=== PATIENT | male | born 1990 | race Caucasian/White ===

== ENCOUNTER 2016-02-27 17:35 | Emergency (ER) | payer BC ==
[~2016-02-27 17:35] MED LIST: MOTR200T40 PO; NORC5TAB PO; TYLE325T5 PO
[2016-02-27] MEDS ORDERED: LIDOCAINE 2% W/EPIN INJ 20ML **PRES FREE As Ordered ONE (18:13)
[2016-02-27] MEDS ORDERED: ADACEL/BOOSTRIX VACCINE (DIPHTH/PERTUSS/ACELL/TETANUS)0.5ML SYR (90715) As Ordered ONE (19:21)
--- NOTE | 2016-02-27 19:46 | EDDOCDS ---
Physician Documentation [facility] Name: Josh Harp Age: 25 yrs Sex: Male : 1990 Arrival Date: 02/27/2016 Time: 17:35 Bed PD Private MD: NO PRIMARY PHYSICIAN, . Disposition: 02/27/16 19:08 Discharged to Home/Self Care. Impression: Concussion, Laceration without foreign body of other part of head - forehead. - Condition is Stable. - Discharge Instructions: Head Injury, Adult, Sutured Wound Care. - Medication Reconciliation, Work Release Form - 2 day form. - Follow up: Emergency Department; When: As needed; Reason: Worsening of conditions. Follow up: Private Physician; When: Call to arrange an appointment; Reason: Wound/Symptom Recheck, Recheck today's complaints, Continuance of care. - Problem is new. - Symptoms have improved. - Notes: 3 sutures were placed today. Keep area clean and dry. Follow up in 7 days for suture removal. Return sooner for any signs of infection. Historical: - Allergies: no known allergies; - Home Meds: 1. Celexa Oral ran out over 1 month ago - PMHx: Depression; - PSHx: Appendectomy; - Social history: Smoking status: Patient states was never smoker of tobacco. No barriers to communication noted, The patient speaks fluent Croatian, Speaks appropriately for age. - Family history: Not pertinent. - : The pt / caregiver states he / she is not on anticoagulants. Home medication list is obtained from the patient. - Exposure Risk Screening:: None identified. - Tetanus status: unknown. Vital Signs: 02/26 17:37 BP 163 / 83; Pulse 94; Resp 18 S; Temp 97.5(O); Pulse Ox 98% on R/A; Weight 99.79 kg / gr2 220 lbs (R); Height 6 ft. 3 in. (190.50 cm) (R); Pain 4/10; 19:11 BP 133 / 75 LA Sitting (auto/reg); Pulse 70 MON; Resp 18 S; Temp 97.7(O); Pulse Ox 97% cln on R/A; Pain 0/10; 17:37 Body Mass Index 27.50 (99.79 kg, 190.50 cm) gr2 [place] Coma Score: 17:41 Eye Response: spontaneous(4). Verbal Response: oriented(5). Motor Response: obeys kr3 commands(6). Total: 15. Procedures: 19:11 Laceration repair:. cc10 Laceration: 19:11 Wound Repair of 2cm ( 0.8in ) full thickness laceration to forehead. Linear shaped.. cc10 Skin/tissue flap noted.. Distal neuro/vascular/tendon intact. Anesthesia: Local anesthetic administered with 2.5 mls of 1% lidocaine w/ Epi. Wound prep: Simple cleansing with betadine by provider, Wound irrigation with saline by provider. Skin closed with 3 x 4-0 Nylon using Simple interrupted sutures. Dressed with Bacitracin. Patient tolerated well. MDM: 18:08 Lidocaine-Epinephrine 2 %-1:100,000 10 ml Infiltration once; to bedside ordered. cc10 18:08 CT Head Without Contrast Ordered. EDMS 19:07 Tetanus- Diptheria-Acellular Pertussis 0.5 ml IM once; Routine booster 10-64yrs, >64 cc10 with child contact Lucama Omnicell ordered. 19:30 Financial registration complete. [email or web address] 19:38 [facility] Payment Agreement was scanned into [employer] and attached to record. [email or web address] Administered Medications: 19:06 Drug: Lidocaine-Epinephrine 2 %-1:100,000 10 ml Route: Infiltration; Site: affected cc10 area; 19:26 Drug: Tetanus- Diptheria-Acellular Pertussis 0.5 ml [diphth,pertussis(acel),tetanus 2.5 kmg1 Lf unit-8 mcg-5 Lf/0.5mL IM syringe (0.5 mL)] {Locker Room Attendant: [employer]. Exp: 04/06/2018. Lot #: [id number]. } Route: IM; Site: left deltoid; Signatures: Dispatcher [employer] EDMS Natasha Scanlon RN RN kmg1 Treva Smith RN RN kr3 Mickie Menchaca RN RN js13 Rubin Agrawal PA-C PA-C cc10 Monse Hatch, Reg Reg ks16 The chart was reviewed and I authenticate all verbal orders and agree with the evaluation and treatment provided.Attachments: 19:38 [facility] Payment Agreement [email or web address] MTDD
--- NOTE | 2016-02-27 19:46 | EDDOCDS ---
Nurse's Notes [facility] Name: Josh Harp Age: 25 yrs Sex: Male : 1990 Arrival Date: 02/27/2016 Time: 17:35 Bed PD Private MD: NO PRIMARY PHYSICIAN, . Diagnosis: Concussion;Laceration without foreign body of other part of head-forehead Presentation: 02/26 17:41 Presenting complaint: states: found by family member sitting on porch with no kr3 recall of injury but had laceration to forehead. Presenting complaint: Patient states: no recall of how he received laceration to forehead. unknown. Mechanism of Injury: resulted from unknown. Adult Sepsis Screening: The patient does not have new or worsening altered mentation. Patient's respiratory rate is less than 22. Systolic blood pressure is greater than 100. Patient has a qSOFA score of 0- Negative Sepsis Screen. Suicide/Homicide risk assessment- the patient denies having any suicidal and/or homicidal ideations and does not present with any other emotional, behavioral or mental health complaints. Status: Patient is not a veterans service officer or dependent. Transition of care: patient was not received from another setting of care. 17:41 Acuity: ISSA Level 3 kr3 17:41 Method Of Arrival: Walkin/Carried/Asstd kr3 Triage Assessment: 17:43 General: Appears in no apparent distress, comfortable, Behavior is cooperative. Pain: kr3 Location: forehead Pain currently is 7 out of 10 on a pain scale. Quality of pain is described as pounding. Pt Declines HIV testing. Neurological: Level of Consciousness is awake, alert, Reports headache. Respiratory: Respiratory effort is even, unlabored. Injury Description: Laceration sustained to middle aspect of left eyebrow is clean, was sustained 30-60 minutes ago. is bleeding no active bleeding noted. Historical: - Allergies: no known allergies; - Home Meds: 1. Celexa Oral ran out over 1 month ago - PMHx: Depression; - PSHx: Appendectomy; - Social history: Smoking status: Patient states was never smoker of tobacco. No barriers to communication noted, The patient speaks fluent Korean, Speaks appropriately for age. - Family history: Not pertinent. - : The pt / caregiver states he / she is not on anticoagulants. Home medication list is obtained from the patient. - Exposure Risk Screening:: None identified. - Tetanus status: unknown. Screenin:00 Screening information is obtained from the patient. Fall risk: No risks identified. js13 Assistance ADL's: requires no assistance with activities of daily living. Abuse/DV Screen: The patient / caregiver reports he/she is: not in a situation that causes fear, pain or injury. Nutritional screening: No deficits noted. Advance Directives: There is no active DNR order. home support is adequate. Assessment: 19:00 General: Appears in no apparent distress, Behavior is appropriate for age, cooperative. js13 Neurological: Level of Consciousness is awake, alert. Respiratory: Airway is patent Respiratory effort is even, unlabored, Respiratory pattern is regular, symmetrical. Derm: Skin is pink, warm & dry. 19:38 General: Appears in no apparent distress, comfortable, Behavior is appropriate for age, kmg1 cooperative. Pain: Location: forehead Pain currently is 1 out of 10 on a pain scale. Quality of pain is described as sore. Injury Description: Laceration sustained to forehead is sutures intact. No bleeding noted. Vital Signs: 17:37 BP 163 / 83; Pulse 94; Resp 18 S; Temp 97.5(O); Pulse Ox 98% on R/A; Weight 99.79 kg gr2 (R); Height 6 ft. 3 in. (190.50 cm) (R); Pain 4/10; 19:11 BP 133 / 75 LA Sitting (auto/reg); Pulse 70 MON; Resp 18 S; Temp 97.7(O); Pulse Ox 97% cln on R/A; Pain 0/10; 17:37 Body Mass Index 27.50 (99.79 kg, 190.50 cm) gr2 Vitals: 17:37 Log In Time: February 27, 2016 at 17:37. gr2 [place] Coma Score: 17:41 Eye Response: spontaneous(4). Verbal Response: oriented(5). Motor Response: obeys kr3 commands(6). Total: 15. ED Course: 17:36 Patient visited by Radha Arana. gr2 17:36 Patient moved to Waiting gr2 17:37 [facility] is Private Physician. gr2 17:37 NO PRIMARY PHYSICIAN, . is Private Physician. gr2 17:38 Patient visited by Radha Arana. gr2 17:39 Patient moved to Pre RCE gr2 17:43 Triage Initiated kr3 17:52 Patient moved to Triage 3 js13 18:00 Chetan Lind PA is PHCP. btw 18:00 Stef Kidd MD is Attending Physician. btw 18:01 Rubin Agrawal PA-C is PHCP. cc10 18:01 Patient visited by Rubin Agrawal PA-C. cc10 18:01 Patient visited by Rubin Agrawal PA-C. cc10 18:11 Patient moved to PD2 / 27 ml6 19:00 The patient / caregiver is instructed regarding the plan of care and ED course. js13 19:00 No IV's were initiated during this patient's visit. No procedures done that require js13 assistance. 19:01 Patient visited by Mickie Menchaca RN. js13 19:14 Patient visited by Fernanda Paulino PCA. cln 19:38 [facility] Payment Agreement was scanned into [employer] and attached to record. [email or web address] Administered Medications: 19:06 Drug: Lidocaine-Epinephrine 2 %-1:100,000 10 ml Route: Infiltration; Site: affected cc10 area; 19:26 Drug: Tetanus- Diptheria-Acellular Pertussis 0.5 ml [diphth,pertussis(acel),tetanus 2.5 kmg1 Lf unit-8 mcg-5 Lf/0.5mL IM syringe (0.5 mL)] {Auditor Supervisor: [employer]. Exp: 04/06/2018. Lot #: [id number]. } Route: IM; Site: left deltoid; Order Results: There are currently no results for this order. Outcome: 19:08 Discharge ordered by Provider. cc10 19:38 Discharge Assessment: Patient awake, alert and oriented x 3. No cognitive and/or kmg1 functional deficits noted. Patient verbalized understanding of disposition instructions. Patient awake and alert. patient administered narcotics - no. The following High Risk Discharge criteria are identified: None. Discharged to home ambulatory, with family. Condition: stable. Discharge instructions given to patient, Instructed on discharge instructions, follow up and referral plans. Demonstrated understanding of instructions, Pt was receptive of discharge instructions/ teaching. CT Study completed. Property sent home with patient. 19:46 Patient left the ED. kmg1 Signatures: Natasha Scanlon, RN RN kmg1 Treva Smith,RN RN crispin3 Bassem Renee, RN RN ml6 Chetan Lind PA PA btw Sullivan, Jennifer,RN RN js13 Radha Arana gr2 Rubin Agrawal, PA-C PA-C cc10 Monse Hatch, Reg Reg ks16 Fernanda Paulino, RICA [employer] cln Corrections: (The following items were deleted from the chart) 19:46 19:38 Discharge Assessment: Patient awake, alert and oriented x 3. No cognitive and/or kmg1 functional deficits noted. Patient verbalized understanding of disposition instructions. Patient awake and alert. patient administered narcotics - kmg1 MTDD
--- NOTE | 2016-02-29 20:46 | EDDOCDS ---
Physician Documentation [facility] Name: Josh Harp Age: 25 yrs Sex: Male : 1990 Arrival Date: 02/27/2016 Time: 17:35 Bed PD Private MD: NO PRIMARY PHYSICIAN, . Disposition: 02/27/16 19:08 Discharged to Home/Self Care. Impression: Concussion, Laceration without foreign body of other part of head - forehead. - Condition is Stable. - Discharge Instructions: Head Injury, Adult, Sutured Wound Care. - Medication Reconciliation, Work Release Form - 2 day form. - Follow up: Emergency Department; When: As needed; Reason: Worsening of conditions. Follow up: Private Physician; When: Call to arrange an appointment; Reason: Wound/Symptom Recheck, Recheck today's complaints, Continuance of care. - Problem is new. - Symptoms have improved. - Notes: 3 sutures were placed today. Keep area clean and dry. Follow up in 7 days for suture removal. Return sooner for any signs of infection. Historical: - Allergies: no known allergies; - Home Meds: 1. Celexa Oral ran out over 1 month ago - PMHx: Depression; - PSHx: Appendectomy; - Social history: Smoking status: Patient states was never smoker of tobacco. No barriers to communication noted, The patient speaks fluent Haitian, Speaks appropriately for age. - Family history: Not pertinent. - : The pt / caregiver states he / she is not on anticoagulants. Home medication list is obtained from the patient. - Exposure Risk Screening:: None identified. - Tetanus status: unknown. Vital Signs: 02/26 17:37 BP 163 / 83; Pulse 94; Resp 18 S; Temp 97.5(O); Pulse Ox 98% on R/A; Weight 99.79 kg / gr2 220 lbs (R); Height 6 ft. 3 in. (190.50 cm) (R); Pain 4/10; 19:11 BP 133 / 75 LA Sitting (auto/reg); Pulse 70 MON; Resp 18 S; Temp 97.7(O); Pulse Ox 97% cln on R/A; Pain 0/10; 17:37 Body Mass Index 27.50 (99.79 kg, 190.50 cm) gr2 [place] Coma Score: 17:41 Eye Response: spontaneous(4). Verbal Response: oriented(5). Motor Response: obeys kr3 commands(6). Total: 15. Procedures: 19:11 Laceration repair:. cc10 Laceration: 19:11 Wound Repair of 2cm ( 0.8in ) full thickness laceration to forehead. Linear shaped.. cc10 Skin/tissue flap noted.. Distal neuro/vascular/tendon intact. Anesthesia: Local anesthetic administered with 2.5 mls of 1% lidocaine w/ Epi. Wound prep: Simple cleansing with betadine by provider, Wound irrigation with saline by provider. Skin closed with 3 x 4-0 Nylon using Simple interrupted sutures. Dressed with Bacitracin. Patient tolerated well. MDM: 18:08 Lidocaine-Epinephrine 2 %-1:100,000 10 ml Infiltration once; to bedside ordered. cc10 18:08 CT Head Without Contrast Ordered. EDMS 19:07 Tetanus- Diptheria-Acellular Pertussis 0.5 ml IM once; Routine booster 10-64yrs, >64 cc10 with child contact Tonalea Omnicell ordered. 19:30 Financial registration complete. [facility] 19:38 [facility] Payment Agreement was scanned into [employer] and attached to record. [facility] 20:56 T-Sheet-- Draft Copy was scanned into [employer] and attached to record. klr Administered Medications: 19:06 Drug: Lidocaine-Epinephrine 2 %-1:100,000 10 ml Route: Infiltration; Site: affected cc10 area; 19:26 Drug: Tetanus- Diptheria-Acellular Pertussis 0.5 ml [diphth,pertussis(acel),tetanus 2.5 kmg1 Lf unit-8 mcg-5 Lf/0.5mL IM syringe (0.5 mL)] {Sandwich Maker: [employer]. Exp: 04/06/2018. Lot #: [id number]. } Route: IM; Site: left deltoid; Signatures: Dispatcher [employer]Host EDMS Natasha Scanlon RN RN kmg1 Treva Smith RN RN kr3 Mickie Menchaca RN RN js13 Rubin Agrawal PA-C PA-C cc10 Monse Hatch, Reg Reg ks16 [place], [place] klr The chart was reviewed and I authenticate all verbal orders and agree with the evaluation and treatment provided.Attachments: 19:38 [facility] Payment Agreement [email or web address] 20:56 T-Sheet-- Draft Copy billy Chart Complete MTDD
--- NOTE | 2016-02-29 20:46 | EDDOCDS ---
Physician Documentation [facility] Name: Josh Harp Age: 25 yrs Sex: Male : 1990 Arrival Date: 02/27/2016 Time: 17:35 Bed PD Private MD: NO PRIMARY PHYSICIAN, . Disposition: 02/27/16 19:08 Discharged to Home/Self Care. Impression: Concussion, Laceration without foreign body of other part of head - forehead. - Condition is Stable. - Discharge Instructions: Head Injury, Adult, Sutured Wound Care. - Medication Reconciliation, Work Release Form - 2 day form. - Follow up: Emergency Department; When: As needed; Reason: Worsening of conditions. Follow up: Private Physician; When: Call to arrange an appointment; Reason: Wound/Symptom Recheck, Recheck today's complaints, Continuance of care. - Problem is new. - Symptoms have improved. - Notes: 3 sutures were placed today. Keep area clean and dry. Follow up in 7 days for suture removal. Return sooner for any signs of infection. Historical: - Allergies: no known allergies; - Home Meds: 1. Celexa Oral ran out over 1 month ago - PMHx: Depression; - PSHx: Appendectomy; - Social history: Smoking status: Patient states was never smoker of tobacco. No barriers to communication noted, The patient speaks fluent Malian, Speaks appropriately for age. - Family history: Not pertinent. - : The pt / caregiver states he / she is not on anticoagulants. Home medication list is obtained from the patient. - Exposure Risk Screening:: None identified. - Tetanus status: unknown. Vital Signs: 02/26 17:37 BP 163 / 83; Pulse 94; Resp 18 S; Temp 97.5(O); Pulse Ox 98% on R/A; Weight 99.79 kg / gr2 220 lbs (R); Height 6 ft. 3 in. (190.50 cm) (R); Pain 4/10; 19:11 BP 133 / 75 LA Sitting (auto/reg); Pulse 70 MON; Resp 18 S; Temp 97.7(O); Pulse Ox 97% cln on R/A; Pain 0/10; 17:37 Body Mass Index 27.50 (99.79 kg, 190.50 cm) gr2 [place] Coma Score: 17:41 Eye Response: spontaneous(4). Verbal Response: oriented(5). Motor Response: obeys kr3 commands(6). Total: 15. Procedures: 19:11 Laceration repair:. cc10 Laceration: 19:11 Wound Repair of 2cm ( 0.8in ) full thickness laceration to forehead. Linear shaped.. cc10 Skin/tissue flap noted.. Distal neuro/vascular/tendon intact. Anesthesia: Local anesthetic administered with 2.5 mls of 1% lidocaine w/ Epi. Wound prep: Simple cleansing with betadine by provider, Wound irrigation with saline by provider. Skin closed with 3 x 4-0 Nylon using Simple interrupted sutures. Dressed with Bacitracin. Patient tolerated well. MDM: 18:08 Lidocaine-Epinephrine 2 %-1:100,000 10 ml Infiltration once; to bedside ordered. cc10 18:08 CT Head Without Contrast Ordered. EDMS 19:07 Tetanus- Diptheria-Acellular Pertussis 0.5 ml IM once; Routine booster 10-64yrs, >64 cc10 with child contact Wesson Omnicell ordered. 19:30 Financial registration complete. [facility] 19:38 [facility] Payment Agreement was scanned into [employer] and attached to record. [facility] 20:56 T-Sheet-- Draft Copy was scanned into [employer] and attached to record. klr Administered Medications: 19:06 Drug: Lidocaine-Epinephrine 2 %-1:100,000 10 ml Route: Infiltration; Site: affected cc10 area; 19:26 Drug: Tetanus- Diptheria-Acellular Pertussis 0.5 ml [diphth,pertussis(acel),tetanus 2.5 kmg1 Lf unit-8 mcg-5 Lf/0.5mL IM syringe (0.5 mL)] {Debit Agent: [employer] Exp: 04/06/2018. Lot #: [id number]. } Route: IM; Site: left deltoid; Signatures: Dispatcher [employer] EDMS Natasha Scanlon RN RN kmg1 Treva Smith RN RN kr3 Mickie Menchaca RN RN js13 Rubin Agrawal PA-C PA-C cc10 Monse Hatch, Reg Reg ks16 [place], [place] klr The chart was reviewed and I authenticate all verbal orders and agree with the evaluation and treatment provided.Attachments: 19:38 [facility] Payment Agreement [email or web address] 20:56 T-Sheet-- Draft Copy billy Chart Complete MTDD
--- NOTE | 2016-02-29 20:46 | EDDOCDS ---
Nurse's Notes [facility] Name: Josh Harp Age: 25 yrs Sex: Male : 1990 Arrival Date: 02/27/2016 Time: 17:35 Bed PD Private MD: NO PRIMARY PHYSICIAN, . Diagnosis: Concussion;Laceration without foreign body of other part of head-forehead Presentation: 02/26 17:41 Presenting complaint: states: found by family member sitting on porch with no kr3 recall of injury but had laceration to forehead. Presenting complaint: Patient states: no recall of how he received laceration to forehead. unknown. Mechanism of Injury: resulted from unknown. Adult Sepsis Screening: The patient does not have new or worsening altered mentation. Patient's respiratory rate is less than 22. Systolic blood pressure is greater than 100. Patient has a qSOFA score of 0- Negative Sepsis Screen. Suicide/Homicide risk assessment- the patient denies having any suicidal and/or homicidal ideations and does not present with any other emotional, behavioral or mental health complaints. Status: Patient is not a nursing services manager or dependent. Transition of care: patient was not received from another setting of care. 17:41 Acuity: ISSA Level 3 kr3 17:41 Method Of Arrival: Walkin/Carried/Asstd kr3 Triage Assessment: 17:43 General: Appears in no apparent distress, comfortable, Behavior is cooperative. Pain: kr3 Location: forehead Pain currently is 7 out of 10 on a pain scale. Quality of pain is described as pounding. Pt Declines HIV testing. Neurological: Level of Consciousness is awake, alert, Reports headache. Respiratory: Respiratory effort is even, unlabored. Injury Description: Laceration sustained to middle aspect of left eyebrow is clean, was sustained 30-60 minutes ago. is bleeding no active bleeding noted. Historical: - Allergies: no known allergies; - Home Meds: 1. Celexa Oral ran out over 1 month ago - PMHx: Depression; - PSHx: Appendectomy; - Social history: Smoking status: Patient states was never smoker of tobacco. No barriers to communication noted, The patient speaks fluent Khmer, Speaks appropriately for age. - Family history: Not pertinent. - : The pt / caregiver states he / she is not on anticoagulants. Home medication list is obtained from the patient. - Exposure Risk Screening:: None identified. - Tetanus status: unknown. Screenin:00 Screening information is obtained from the patient. Fall risk: No risks identified. js13 Assistance ADL's: requires no assistance with activities of daily living. Abuse/DV Screen: The patient / caregiver reports he/she is: not in a situation that causes fear, pain or injury. Nutritional screening: No deficits noted. Advance Directives: There is no active DNR order. home support is adequate. Assessment: 19:00 General: Appears in no apparent distress, Behavior is appropriate for age, cooperative. js13 Neurological: Level of Consciousness is awake, alert. Respiratory: Airway is patent Respiratory effort is even, unlabored, Respiratory pattern is regular, symmetrical. Derm: Skin is pink, warm & dry. 19:38 General: Appears in no apparent distress, comfortable, Behavior is appropriate for age, kmg1 cooperative. Pain: Location: forehead Pain currently is 1 out of 10 on a pain scale. Quality of pain is described as sore. Injury Description: Laceration sustained to forehead is sutures intact. No bleeding noted. Vital Signs: 17:37 BP 163 / 83; Pulse 94; Resp 18 S; Temp 97.5(O); Pulse Ox 98% on R/A; Weight 99.79 kg gr2 (R); Height 6 ft. 3 in. (190.50 cm) (R); Pain 4/10; 19:11 BP 133 / 75 LA Sitting (auto/reg); Pulse 70 MON; Resp 18 S; Temp 97.7(O); Pulse Ox 97% cln on R/A; Pain 0/10; 17:37 Body Mass Index 27.50 (99.79 kg, 190.50 cm) gr2 Vitals: 17:37 Log In Time: February 27, 2016 at 17:37. gr2 Davis Coma Score: 17:41 Eye Response: spontaneous(4). Verbal Response: oriented(5). Motor Response: obeys kr3 commands(6). Total: 15. ED Course: 17:36 Patient visited by Radha Arana. gr2 17:36 Patient moved to Waiting gr2 17:37 [facility] is Private Physician. gr2 17:37 NO PRIMARY PHYSICIAN, . is Private Physician. gr2 17:38 Patient visited by Radha Arana. gr2 17:39 Patient moved to Pre RCE gr2 17:43 Triage Initiated kr3 17:52 Patient moved to Triage 3 js13 18:00 Chetan Lind PA is PHCP. btw 18:00 Stef Kidd MD is Attending Physician. btw 18:01 Rubin Agrawal PA-C is PHCP. cc10 18:01 Patient visited by Rubin Agrawal PA-C. cc10 18:01 Patient visited by Rubin Agrawal PA-C. cc10 18:11 Patient moved to PD2 / 27 ml6 19:00 The patient / caregiver is instructed regarding the plan of care and ED course. js13 19:00 No IV's were initiated during this patient's visit. No procedures done that require js13 assistance. 19:01 Patient visited by Mickie Menchaca RN. js13 19:14 Patient visited by Fernanda Paulino PCA. cln 19:38 [facility] Payment Agreement was scanned into [employer] and attached to record. ks16 19:50 CT Head Without Contrast Returned. EDMS 20:56 T-Sheet-- Draft Copy was scanned into [employer] and attached to record. klr Administered Medications: 19:06 Drug: Lidocaine-Epinephrine 2 %-1:100,000 10 ml Route: Infiltration; Site: affected cc10 area; 19:26 Drug: Tetanus- Diptheria-Acellular Pertussis 0.5 ml [diphth,pertussis(acel),tetanus 2.5 kmg1 Lf unit-8 mcg-5 Lf/0.5mL IM syringe (0.5 mL)] {Student Services Coordinator: [employer]. Exp: 04/06/2018. Lot #: [id number]. } Route: IM; Site: left deltoid; Order Results: Radiology Order: CT Head Without Contrast Test: CT Head Without Contrast REASON FOR EXAMINATION: Trauma; ; CLINICAL HISTORY: Head trauma.; TECHNIQUE: Multiple axial brain CT scan sections were obtained from base to vertex without contrast a; dministration.; COMMENTS:; There is no evidence of skull fracture.; The study shows normal configuration of sella turcica. There are no intra or extra-axial collections.; There is no mass effect or midline shift. There is no evidence of hematoma formation. No hydrocephal; us is present. No abnormal calcifications are noted.; No significant abnormalities are seen either in the posterior fossa or supratentorial compartment.; The sinuses and mastoid air cells are patent.; IMPRESSION:; No evidence of acute intracranial pathology. No intracranial hemorrhage or skull fracture.; Thank you for your kind referral of this patient.; ; Outcome: 19:08 Discharge ordered by Provider. cc10 19:38 Discharge Assessment: Patient awake, alert and oriented x 3. No cognitive and/or kmg1 functional deficits noted. Patient verbalized understanding of disposition instructions. Patient awake and alert. patient administered narcotics - no. The following High Risk Discharge criteria are identified: None. Discharged to home ambulatory, with family. Condition: stable. Discharge instructions given to patient, Instructed on discharge instructions, follow up and referral plans. Demonstrated understanding of instructions, Pt was receptive of discharge instructions/ teaching. CT Study completed. Property sent home with patient. 19:46 Patient left the ED. kmg1 Signatures: Dispatcher [employer] EDMS Natasha Scanlon RN RN kmg1 Treva Smith,RN RN crispin3 Bassem Renee, RN RN ml6 Chetan Lind PA PA btw Sullivan, Jennifer,RN RN js13 Radha Arana gr2 Rubin Agrawal PA-C PA-C cc10 Monse Hatch, Reg Reg ks16 Fernanda Paulino, ZINC PLATING MACHINE OPERATOR ZINC PLATING MACHINE OPERATOR clEnid Cates Corrections: (The following items were deleted from the chart) 19:46 19:38 Discharge Assessment: Patient awake, alert and oriented x 3. No cognitive and/or kmg1 functional deficits noted. Patient verbalized understanding of disposition instructions. Patient awake and alert. patient administered narcotics - kmg1 Chart Complete MTDD
== END 2016-02-27 19:46 | disposition home or self-care (01) ==
LOC: M ED 17:35
DX: S01.01XA Laceration without foreign body of scalp, initial encounter (principal); S06.0X0A Concussion without loss of consciousness, initial encounter; W22.8XXA Striking against or struck by other objects, initial encounter; Y92.019 Unspecified place in single-family (private) house as the place of occurrence of the external cause; Y93.89 Activity, other specified; Y99.8 Other external cause status; F32.9 Major depressive disorder, single episode, unspecified; Z79.899 Other long term (current) drug therapy

== ENCOUNTER 2016-03-01 09:19 | Emergency (ER) | payer BC ==
--- NOTE | 2016-03-01 10:19 | EDDOCDS ---
Nurse's Notes [facility] Name: Josh Harp Age: 25 yrs Sex: Male : 1990 Arrival Date: 03/01/2016 Time: : Bed I6 / 28 Private MD: Kenyetta Cage Diagnosis: Concussion-with short term memory impairment Presentation: 03/01 09:26 Presenting complaint: states: Fall with LOC on Sunday seen here, reports mlb1 memory loss since Sunday. Adult Sepsis Screening: Patient has new or worsening altered mentation (1 point). Patient's respiratory rate is less than 22. Systolic blood pressure is greater than 100. Patient has a qSOFA score of 0- Negative Sepsis Screen. Suicide/Homicide risk assessment- the patient denies having any suicidal and/or homicidal ideations and does not present with any other emotional, behavioral or mental health complaints. Status: Patient is not a information services consultant or dependent. Transition of care: patient was not received from another setting of care. 09:26 Acuity: ISSA Level 3 mlb1 09:26 Method Of Arrival: Walkin/Carried/Asstd mlb1 Triage Assessment: 09:28 General: Appears in no apparent distress, Behavior is cooperative, quiet. Pain: mlb1 Location: head Pain currently is 7 out of 10 on a pain scale. HIV screening NA for this visit Offered previously. Neurological: Level of Consciousness is awake, Oriented to person, place, time. Historical: - Allergies: no known allergies; - Home Meds: 1. Celexa 20 mg oral tab once daily ran out over 1 month ago - PMHx: Depression; - PSHx: Appendectomy; - Social history: Smoking status: Patient states was never smoker of tobacco. No barriers to communication noted, The patient speaks fluent Bengali, Speaks appropriately for age. - Family history: Not pertinent. - : The pt / caregiver states he / she is not on anticoagulants. Home medication list is obtained from family members. - Exposure Risk Screening:: None identified. Screenin:51 Screening information is obtained from the patient. Fall risk: At risk due to apparent ck1 cognitive impairment, The following interventions are performed due to a positive Fall Risk Screen: Fall Risk is added to Special Handling on the patient Summary Screen. A Fall Risk Bracelet was applied to the patient. Side Rails are placed in the up position. A Call Perez is given with instruction to call for help when getting out of bed. Fall Alert bracelet is placed on the patient. Assistance ADL's: requires no assistance with activities of daily living. Abuse/DV Screen: The patient / caregiver reports he/she is: not in a situation that causes fear, pain or injury. Nutritional screening: No deficits noted. Advance Directives: Currently, there is no health care proxy. home support is adequate. Assessment: 09:52 General: Appears in no apparent distress, Behavior is flat. Pain: Location: head Pain ck1 currently is 6 out of 10 on a pain scale. Neurological: Level of Consciousness is awake, alert, obeys commands, Oriented to person, place, time. Respiratory: No deficits noted. GI: Reports nausea. Derm: Skin is pink, warm & dry. sutures in place to forehead. Site clear , no redness or swelling noted. Musculoskeletal: Circulation, motion, and sensation intact Range of motion intact in all extremities. 10:18 Reassessment: Patient appears in no apparent distress at this time. pain OWENS 6/10. AO ck1 x's 3. Vital Signs: 09:21 BP 149 / 79; Pulse 78; Resp 16; Temp 98.3; Pulse Ox 100% ; Weight 90.72 kg; Height 6 cmb ft. 1 in. (185.42 cm); Pain 7/10; 09:21 Body Mass Index 26.39 (90.72 kg, 185.42 cm) cmb Vitals: 09:21 Log In Time: March 01, 2016 at 09:15. cmb ED Course: 09:21 Patient visited by Jossie Webber. cmb 09:21 Kenyetta Cage PA-C is Private Physician. cmb 09:21 Patient moved to Waiting cmb 09:25 Patient visited by Korey Mtz RN. mlb1 09:27 Triage Initiated mlb1 09:28 RN notified that patient meets Red Flag criteria. cmb 09:29 Patient visited by Korey Mtz RN. mlb1 09:29 [facility] ar2 09:29 Stef Kidd MD is Attending Physician. ar2 09:29 Patient visited by Robertshaw, Bora, PA-C. ar2 09:29 Patient moved to Triage 3 mlb1 09:30 Patient moved to Triage 2 mlb1 09:45 Patient moved to I6 / 28 dy 09:52 The patient / caregiver is instructed regarding the plan of care and ED course. ck1 10:07 Crispin Justice MD is Referral Physician. ar2 10:13 [facility] Payment Agreement was scanned into [employer] and attached to record. pm4 10:17 No IV's were initiated during this patient's visit. No procedures done that require ck1 assistance. Order Results: There are currently no results for this order. Outcome: 10:08 Discharge ordered by Provider. ar2 10:17 Discharge Assessment: Patient awake, alert and oriented x 3. No cognitive and/or ck1 functional deficits noted. Patient verbalized understanding of disposition instructions. patient administered narcotics - no. The following High Risk Discharge criteria are identified: None. Discharged to home ambulatory, with significant other. Condition: stable. Discharge instructions given to patient, significant other, Instructed on discharge instructions, follow up and referral plans. medication usage, Demonstrated understanding of instructions, medications, Pt was receptive of discharge instructions/ teaching. No special radiology studies were completed. Property :Personal belongings accompany Pt. 10:18 Patient left the ED. ck1 Signatures: Keith Machado RN Korey Haywood RN RN mlb1 Hilary Romo RN RN ck1 Bora Barfield PA-C PA-C ar2 Jossie Webber Paul, Reg Reg pm4 MTDD
--- NOTE | 2016-03-01 10:19 | EDDOCDS ---
Physician Documentation [facility] Name: Josh Harp Age: 25 yrs Sex: Male : 1990 Arrival Date: 03/01/2016 Time: 09:19 Bed I6 / Private MD: Kenyetta Cage Disposition: 03/01/16 10:08 Discharged to Home/Self Care. Impression: Concussion - with short term memory impairment. - Condition is Stable. - Discharge Instructions: Concussion, Adult. - Medication Reconciliation, Local Pharmacy Hours form. - Follow up: Crispin Justice MD; When: Call to arrange an appointment; Reason: Recheck today's complaints, Continuance of care. - Problem is new. - Symptoms are unchanged. Historical: - Allergies: no known allergies; - Home Meds: 1. Celexa 20 mg oral tab once daily ran out over 1 month ago - PMHx: Depression; - PSHx: Appendectomy; - Social history: Smoking status: Patient states was never smoker of tobacco. No barriers to communication noted, The patient speaks fluent South Korean, Speaks appropriately for age. - Family history: Not pertinent. - : The pt / caregiver states he / she is not on anticoagulants. Home medication list is obtained from family members. - Exposure Risk Screening:: None identified. Vital Signs: 03/01 09:21 BP 149 / 79; Pulse 78; Resp 16; Temp 98.3; Pulse Ox 100% ; Weight 90.72 kg / 200 lbs; cmb Height 6 ft. 1 in. (185.42 cm); Pain 7/10; 09:21 Body Mass Index 26.39 (90.72 kg, 185.42 cm) cmb MDM: 10:05 Financial registration complete. pm4 10:13 [facility] Payment Agreement was scanned into [employer] and attached to record. pm4 Signatures: Korey Mtz RN RN mlb1 Hilary Romo RN RN ck1 Bora Barfield PA-C PA-C ar2 Paolo Anderson, Reg Reg pm4 The chart was reviewed and I authenticate all verbal orders and agree with the evaluation and treatment provided.Attachments: 10:13 [facility] Payment Agreement pm4 MTDD
--- NOTE | 2016-03-03 11:19 | EDDOCDS ---
Physician Documentation [facility] Name: Josh Harp Age: 25 yrs Sex: Male : 1990 Arrival Date: 03/01/2016 Time: 09:19 Bed I6 / Private MD: Kenyetta Cage Disposition: 03/01/16 10:08 Discharged to Home/Self Care. Impression: Concussion - with short term memory impairment. - Condition is Stable. - Discharge Instructions: Concussion, Adult. - Medication Reconciliation, Local Pharmacy Hours form. - Follow up: Crispin Justice MD; When: Call to arrange an appointment; Reason: Recheck today's complaints, Continuance of care. - Problem is new. - Symptoms are unchanged. Historical: - Allergies: no known allergies; - Home Meds: 1. Celexa 20 mg oral tab once daily ran out over 1 month ago - PMHx: Depression; - PSHx: Appendectomy; - Social history: Smoking status: Patient states was never smoker of tobacco. No barriers to communication noted, The patient speaks fluent Trinidadian, Speaks appropriately for age. - Family history: Not pertinent. - : The pt / caregiver states he / she is not on anticoagulants. Home medication list is obtained from family members. - Exposure Risk Screening:: None identified. Vital Signs: 03/01 09:21 BP 149 / 79; Pulse 78; Resp 16; Temp 98.3; Pulse Ox 100% ; Weight 90.72 kg / 200 lbs; cmb Height 6 ft. 1 in. (185.42 cm); Pain 7/10; 09:21 Body Mass Index 26.39 (90.72 kg, 185.42 cm) cmb MDM: 10:05 Financial registration complete. pm4 10:13 [facility] Payment Agreement was scanned into [employer] and attached to record. pm4 13:45 T-Sheet-- Draft Copy was scanned into [employer] and attached to record. gb Signatures: Claudia Perez, Reg Reg gb Korey Mtz, RN RN mlb1 Hilary Romo RN RN ck1 Bora Barfield, PAYamilka PAYamilka ar2 Paolo Anderson, Reg Reg pm4 The chart was reviewed and I authenticate all verbal orders and agree with the evaluation and treatment provided.Attachments: 10: [facility] Payment Agreement pm4 13:45 T-Sheet-- Draft Copy gb Chart Complete MTDD
--- NOTE | 2016-03-03 11:19 | EDDOCDS ---
Nurse's Notes [facility] Name: Josh Harp Age: 25 yrs Sex: Male : 1990 Arrival Date: 03/01/2016 Time: : Bed I6 / 28 Private MD: Kenyetta Cage Diagnosis: Concussion-with short term memory impairment Presentation: 03/01 09:26 Presenting complaint: states: Fall with LOC on Sunday seen here, reports mlb1 memory loss since Sunday. Adult Sepsis Screening: Patient has new or worsening altered mentation (1 point). Patient's respiratory rate is less than 22. Systolic blood pressure is greater than 100. Patient has a qSOFA score of 0- Negative Sepsis Screen. Suicide/Homicide risk assessment- the patient denies having any suicidal and/or homicidal ideations and does not present with any other emotional, behavioral or mental health complaints. Status: Patient is not a director of tax services or dependent. Transition of care: patient was not received from another setting of care. 09:26 Acuity: ISSA Level 3 mlb1 09:26 Method Of Arrival: Walkin/Carried/Asstd mlb1 Triage Assessment: 09:28 General: Appears in no apparent distress, Behavior is cooperative, quiet. Pain: mlb1 Location: head Pain currently is 7 out of 10 on a pain scale. HIV screening NA for this visit Offered previously. Neurological: Level of Consciousness is awake, Oriented to person, place, time. Historical: - Allergies: no known allergies; - Home Meds: 1. Celexa 20 mg oral tab once daily ran out over 1 month ago - PMHx: Depression; - PSHx: Appendectomy; - Social history: Smoking status: Patient states was never smoker of tobacco. No barriers to communication noted, The patient speaks fluent Hebrew, Speaks appropriately for age. - Family history: Not pertinent. - : The pt / caregiver states he / she is not on anticoagulants. Home medication list is obtained from family members. - Exposure Risk Screening:: None identified. Screenin:51 Screening information is obtained from the patient. Fall risk: At risk due to apparent ck1 cognitive impairment, The following interventions are performed due to a positive Fall Risk Screen: Fall Risk is added to Special Handling on the patient Summary Screen. A Fall Risk Bracelet was applied to the patient. Side Rails are placed in the up position. A Call Perez is given with instruction to call for help when getting out of bed. Fall Alert bracelet is placed on the patient. Assistance ADL's: requires no assistance with activities of daily living. Abuse/DV Screen: The patient / caregiver reports he/she is: not in a situation that causes fear, pain or injury. Nutritional screening: No deficits noted. Advance Directives: Currently, there is no health care proxy. home support is adequate. Assessment: 09:52 General: Appears in no apparent distress, Behavior is flat. Pain: Location: head Pain ck1 currently is 6 out of 10 on a pain scale. Neurological: Level of Consciousness is awake, alert, obeys commands, Oriented to person, place, time. Respiratory: No deficits noted. GI: Reports nausea. Derm: Skin is pink, warm & dry. sutures in place to forehead. Site clear , no redness or swelling noted. Musculoskeletal: Circulation, motion, and sensation intact Range of motion intact in all extremities. 10:18 Reassessment: Patient appears in no apparent distress at this time. pain OWENS 6/10. AO ck1 x's 3. Vital Signs: 09:21 BP 149 / 79; Pulse 78; Resp 16; Temp 98.3; Pulse Ox 100% ; Weight 90.72 kg; Height 6 cmb ft. 1 in. (185.42 cm); Pain 7/10; 09:21 Body Mass Index 26.39 (90.72 kg, 185.42 cm) cmb Vitals: 09:21 Log In Time: March 01, 2016 at 09:15. cmb ED Course: 09:21 Patient visited by Josise Webber. cmb 09:21 Kenyetta Cage PA-C is Private Physician. cmb 09:21 Patient moved to Waiting cmb 09:25 Patient visited by Korey Mtz RN. mlb1 09:27 Triage Initiated mlb1 09:28 RN notified that patient meets Red Flag criteria. cmb 09:29 Patient visited by Korey Mtz RN. mlb1 09:29 Bora Barfield [facility] ar2 09:29 Stef Kidd MD is Attending Physician. ar2 09:29 Patient visited by Robertshaw, Bora, PA-C. ar2 09:29 Patient moved to Triage 3 mlb1 09:30 Patient moved to Triage 2 mlb1 09:45 Patient moved to I6 / 28 dy 09:52 The patient / caregiver is instructed regarding the plan of care and ED course. ck1 10:07 Crispin Justice MD is Referral Physician. ar2 10:13 [facility] Payment Agreement was scanned into [employer] and attached to record. pm4 10:17 No IV's were initiated during this patient's visit. No procedures done that require ck1 assistance. 13:45 T-Sheet-- Draft Copy was scanned into [employer] and attached to record. gb Order Results: There are currently no results for this order. Outcome: 10:08 Discharge ordered by Provider. ar2 10:17 Discharge Assessment: Patient awake, alert and oriented x 3. No cognitive and/or ck1 functional deficits noted. Patient verbalized understanding of disposition instructions. patient administered narcotics - no. The following High Risk Discharge criteria are identified: None. Discharged to home ambulatory, with significant other. Condition: stable. Discharge instructions given to patient, significant other, Instructed on discharge instructions, follow up and referral plans. medication usage, Demonstrated understanding of instructions, medications, Pt was receptive of discharge instructions/ teaching. No special radiology studies were completed. Property :Personal belongings accompany Pt. 10:18 Patient left the ED. ck1 Signatures: Claudia Perez, Reg Reg gb Keith Machado RN EMMA dy Korey Mtz RN RN mlb1 Hilary Romo RN RN ck1 Bora Barfield PA-C PA-C ar2 Jossie Webber Paul, Reg Reg pm4 Chart Complete MTDD
--- NOTE | 2016-03-03 11:19 | EDDOCDS ---
Physician Documentation [facility] Name: Josh Harp Age: 25 yrs Sex: Male : 1990 Arrival Date: 03/01/2016 Time: 09:19 Bed I6 / Private MD: Kenyetta Cage Disposition: 03/01/16 10:08 Discharged to Home/Self Care. Impression: Concussion - with short term memory impairment. - Condition is Stable. - Discharge Instructions: Concussion, Adult. - Medication Reconciliation, Local Pharmacy Hours form. - Follow up: Crispin Jutsice MD; When: Call to arrange an appointment; Reason: Recheck today's complaints, Continuance of care. - Problem is new. - Symptoms are unchanged. Historical: - Allergies: no known allergies; - Home Meds: 1. Celexa 20 mg oral tab once daily ran out over 1 month ago - PMHx: Depression; - PSHx: Appendectomy; - Social history: Smoking status: Patient states was never smoker of tobacco. No barriers to communication noted, The patient speaks fluent Norwegian, Speaks appropriately for age. - Family history: Not pertinent. - : The pt / caregiver states he / she is not on anticoagulants. Home medication list is obtained from family members. - Exposure Risk Screening:: None identified. Vital Signs: 03/01 09:21 BP 149 / 79; Pulse 78; Resp 16; Temp 98.3; Pulse Ox 100% ; Weight 90.72 kg / 200 lbs; cmb Height 6 ft. 1 in. (185.42 cm); Pain 7/10; 09:21 Body Mass Index 26.39 (90.72 kg, 185.42 cm) cmb MDM: 10:05 Financial registration complete. pm4 10:13 [facility] Payment Agreement was scanned into [employer] and attached to record. pm4 13:45 T-Sheet-- Draft Copy was scanned into [employer] and attached to record. gb Signatures: Claudia Perez, Reg Reg gb Korey Mtz, RN RN mlb1 Hilary Romo RN RN ck1 Bora Barfield, PAYamilka PAYamilka ar2 Paolo Anderson, Reg Reg pm4 The chart was reviewed and I authenticate all verbal orders and agree with the evaluation and treatment provided.Attachments: 10: [facility] Payment Agreement pm4 13:45 T-Sheet-- Draft Copy gb Chart Complete MTDD
== END 2016-03-01 10:18 | disposition home or self-care (01) ==
LOC: M ED 09:19
DX: G31.84 Mild cognitive impairment of uncertain or unknown etiology (principal); F07.81 Postconcussional syndrome; F32.9 Major depressive disorder, single episode, unspecified

== ENCOUNTER → 2016-07-06 | Outpatient (REF) | payer BC ==
[~2016-07-06] MED LIST changes: -MOTR200T40 PO; +MOTR200T44 PO; +NORC1TAB4 PO; -NORC5TAB PO
[2016-07-06 12:53] LABS: BASO % 0.4 % (0.0-1.0); EOS # 0.1 K/mm3 (0.0-0.50); EOS % 1.9 % (0.0-3.0); LARGE UNSTAINED CELL # 0.1 K/mm3 (0.0-0.4); LARGE UNSTAINED CELL % 1.7 % (0.0-4.0); LYMPH # 1.8 K/mm3 (1.5-6.5); LYMPH % 37.3 % (24.0-44.0); MEAN CORPUSCULAR HEMOGLOBIN 35.2 pg (27.0-33.0); MEAN CORPUSCULAR HGB CONC 36.2 g/dl (32.0-36.5); MEAN CORPUSCULAR VOLUME 97.3 fl (80.0-96.0); MONO # 0.3 K/mm3 (0.0-0.8); MONO % 7.3 % (0.0-5.0); NEUTROPHILS # 2.4 K/mm3 (1.8-7.7); NEUTROPHILS % 51.4 % (36.0-66.0); PLATELET COUNT, AUTOMATED 209 k/mm3 (150-450); RED CELL DISTRIBUTION WIDTH 12.2 % (11.5-14.5); WHITE BLOOD COUNT 4.6 K/mm3 (4.0-10.0)
[2016-07-06 13:03] LABS: PERCENT SATURATION 22.2 % (19.7-37.4)
== END ==
LOC: M SFHCADAM 08:27
PROVIDERS: ATTEND Physician Assistant Medical
DX: D64.9 Anemia, unspecified (principal); E55.9 Vitamin D deficiency, unspecified

== ENCOUNTER 2016-09-06 22:57 | Emergency (ER) | payer BC ==
[~2016-09-06] VITALS: Ht 188 cm; Wt 118.6 kg
[2016-09-06] MEDS ORDERED: CITA20TA4 PO (23:16)
[2016-09-06] MEDS ORDERED: VITA100067 PO (23:16)
[2016-09-06] MEDS ORDERED: VITA500T3 PO (23:17)
[2016-09-07] MEDS ORDERED: NORCOTAB PO (03:03)
[2016-09-07] MEDS ORDERED: AUGM875T28 PO (03:03)
[2016-09-07] MEDS ORDERED: NORCO 5/325MG TABLET (BULK FOR ED) PO ONE (03:15)
[2016-09-07] MEDS ORDERED: AUGMENTIN 875 MG TAB PO ONE (03:15)
[2016-09-07 04:17] VITALS: BP 133/85
== END 2016-09-07 04:27 | disposition home or self-care (01) ==
LOC: M ED 22:57
DX: K04.7 Periapical abscess without sinus (principal); Z79.899 Other long term (current) drug therapy

== ENCOUNTER → 2017-03-06 | Outpatient (REF) | payer OTHER ==
[2017-03-06 12:54] LABS: BASO % 0.4 % (0.0-1.0); EOS # 0.1 10^3/uL (0.0-0.50); EOS % 1.1 % (0.0-3.0); HEMATOCRIT 40.7 % (42.0-52.0); HEMOGLOBIN 14.3 g/dl (14.0-18.0); IMMATURE GRANULOCYTE % 0.4 % (0-0); LYMPH # 1.7 10^3/uL (1.5-6.5); LYMPH % 36.7 % (24.0-44.0); MEAN CORPUSCULAR HEMOGLOBIN 33.1 pg (27.0-33.0); MEAN CORPUSCULAR HGB CONC 35.1 g/dl (32.0-36.5); MEAN CORPUSCULAR VOLUME 94.2 fl (80.0-96.0); MONO # 0.4 10^3/uL (0.0-0.8); MONO % 9.3 % (0.0-5.0); NEUTROPHILS # 2.4 10^3/uL (1.8-7.7); NEUTROPHILS % 52.1 % (36.0-66.0); PLATELET COUNT, AUTOMATED 228 10^3/uL (150-450); RED BLOOD COUNT 4.32 10^6/uL (4.30-6.10); RED CELL DISTRIBUTION WIDTH 11.5 % (11.5-14.5); WHITE BLOOD COUNT 4.5 10^3/uL (4.0-10.0)
[2017-03-06 12:58] LABS: ALBUMIN 4.2 GM/DL (3.2-5.2); ALKALINE PHOSPHATASE 82 U/L (45-117); ALT/SGPT 35 U/L (12-78); ANION GAP 5 MEQ/L (8-16); AST/SGOT 16 U/L (7-37); BILIRUBIN,TOTAL 0.5 MG/DL (0.2-1.0); BLOOD UREA NITROGEN 11 MG/DL (7-18); CALCIUM LEVEL 8.7 MG/DL (8.5-10.1); CARBON DIOXIDE LEVEL 30 MEQ/L (21-32); CHLORIDE LEVEL 107 MEQ/L (98-107); FERRITIN 67 NG/ML (26-388); GLOMERULAR FILTRATION RATE > 60.0 (>60); GLUCOSE, FASTING 89 MG/DL (70-105); IRON (FE) 113 UG/DL (65-175); PERCENT SATURATION 35.1 % (19.7-50.0); POTASSIUM SERUM 4.3 MEQ/L (3.5-5.1); SODIUM LEVEL 142 MEQ/L (136-145); TOTAL IRON BINDING CAPACITY 322 UG/DL (250-450)
[2017-03-06 13:30] LABS: FOLATE 11.1 NG/ML; VITAMIN B12 LEVEL 364 PG/ML
[2017-03-06 13:45] LABS: TOTAL 25(OH) VITAMIN D 9.6 NG/ML (30.0-100.0)
== END ==
LOC: M SFHCADAM 09:32
DX: D51.9 Vitamin B12 deficiency anemia, unspecified (principal); F32.9 Major depressive disorder, single episode, unspecified; E55.9 Vitamin D deficiency, unspecified

== ENCOUNTER → 2017-08-23 | Outpatient (REF) | payer OTHER | LOC: M SFHCADAM 15:16 | DX: D51.9 Vitamin B12 deficiency anemia, unspecified (principal); E55.9 Vitamin D deficiency, unspecified ==

== ENCOUNTER → 2018-03-12 | Outpatient (REF) | payer OTHER ==
[~2018-03-12] MED LIST changes: +AUGM875T28 PO; +CITA20TA4 PO; +NORCOTAB PO; +VITA100067 PO; +VITA500T3 PO
== END ==
LOC: M SFHCADAM 10:56
PROVIDERS: ATTEND Physician Assistant Medical
DX: F32.9 Major depressive disorder, single episode, unspecified (principal); D51.9 Vitamin B12 deficiency anemia, unspecified; E55.9 Vitamin D deficiency, unspecified

== ENCOUNTER 2018-05-06 18:31 | Emergency (ER) | payer OTHER ==
[~2018-05-06] VITALS: Ht 188 cm; Wt 118.1 kg
[2018-05-06] MEDS ORDERED: NS 1,000 ML IV ONE (19:00)
[2018-05-06] MEDS ORDERED: PANTOPRAZOLE 40MG INJ (PROTONIX) (C9113) IV ONE (19:00)
[2018-05-06] MEDS ORDERED: ONDANSETRON 4MG/2ML VIAL (J2405) IV ONE (19:00)
[2018-05-06 19:30] LABS: BASO % 0.3 % (0.0-1.0); EOS % 0.4 % (0.0-3.0); HEMOGLOBIN 15.5 g/dl (13.5-17.5); LYMPH # 2.3 10^3/uL (1.5-6.5); LYMPH % 22.2 % (24.0-44.0); MEAN CORPUSCULAR HEMOGLOBIN 33.4 pg (27.0-33.0); MEAN CORPUSCULAR VOLUME 92.7 fl (80.0-96.0); MONO # 0.6 10^3/uL (0.0-0.8); MONO % 6.1 % (0.0-5.0); NEUTROPHILS # 7.3 10^3/uL (1.8-7.7); NEUTROPHILS % 70.6 % (36.0-66.0); PLATELET COUNT, AUTOMATED 250 10^3/uL (150-450); RED BLOOD COUNT 4.64 10^6/uL (4.30-6.10); WHITE BLOOD COUNT 10.4 10^3/uL (4.0-10.0)
[2018-05-06 19:40] LABS: ALBUMIN 4.4 GM/DL (3.2-5.2); ALT/SGPT 38 U/L (12-78); AMYLASE 32 U/L (25-115); BILIRUBIN,DIRECT < 0.1 MG/DL (0.0-0.2); BILIRUBIN,TOTAL 0.3 MG/DL (0.2-1.0); BLOOD UREA NITROGEN 10 MG/DL (7-18); CALCIUM LEVEL 9.2 MG/DL (8.5-10.1); CARBON DIOXIDE LEVEL 28 MEQ/L (21-32); CHLORIDE LEVEL 105 MEQ/L (98-107); CREATININE FOR GFR 0.94 MG/DL (0.70-1.30); GLOMERULAR FILTRATION RATE > 60.0 (>60); GLUCOSE, FASTING 88 MG/DL (70-100); LIPASE 93 U/L (73-393); POTASSIUM SERUM 3.8 MEQ/L (3.5-5.1); SODIUM LEVEL 140 MEQ/L (136-145); TOTAL PROTEIN 7.6 GM/DL (6.4-8.2)
[2018-05-06] MEDS ORDERED: ONDA8TAB8 PO (21:03)
[2018-05-06] MEDS ORDERED: ONDANSETRON 4 MG ORAL DISINTEGRATING TAB (Q0162 PER 1MG) PO ONE (21:15)
[2018-05-06 21:16] VITALS: BP 136/73
== END 2018-05-06 21:20 | disposition home or self-care (01) ==
LOC: M ED 18:31
DX: R11.2 Nausea with vomiting, unspecified (principal); D50.9 Iron deficiency anemia, unspecified
CPT/HCPCS: 80048; 80076; 82150; 83690; 85025; 86850; 86900; 86901; 99284; C9113; J2405; Q0162

== ENCOUNTER → 2018-08-09 | Outpatient (REF) | payer OTHER ==
[~2018-08-09] MED LIST changes: -CITA20TA4 PO; +CITA20TA6 PO; +HYDR-3715 PO; -NORC1TAB4 PO; +NORC1TAB7 PO; -NORCOTAB PO; +ONDA8TAB8 PO
[2018-08-09 13:49] LABS: THYROID STIMULATING HORMONE 1.4 uIU/ML (0.358-3.740); TOTAL 25(OH) VITAMIN D 15.7 NG/ML (30.0-100.0)
== END ==
LOC: M SFHCADAM 10:08
PROVIDERS: ATTEND Physician Assistant Medical
DX: E55.9 Vitamin D deficiency, unspecified (principal); F32.9 Major depressive disorder, single episode, unspecified

== ENCOUNTER 2018-10-16 00:50 | Emergency (ER) | payer OTHER ==
[~2018-10-16] VITALS: Ht 188 cm; Wt 100.0 kg
[~2018-10-16 00:50] MED LIST changes: +CYAN500T8 PO; -VITA500T3 PO
[2018-10-16 00:51] VITALS: BP 139/76
[2018-10-16] MEDS ORDERED: NYST1POW9 (00:58)
[2018-10-16] MEDS ORDERED: CITA20TA6 (00:58)
[2018-10-16] MEDS ORDERED: TETRACAINE 0.5% OPHTH SOLN 4ML OU ONE (01:30)
[2018-10-16] MEDS ORDERED: FLUORESCEIN OPHTH 1 MG STRIP OU ONE (01:30)
[2018-10-16] MEDS ORDERED: POLYTRIM OPTH DROPS 10ML OD STA (01:48)
[2018-10-16] MEDS ORDERED: POLYSOL OP (01:51)
== END 2018-10-16 02:13 | disposition home or self-care (01) ==
LOC: M ED 00:50
DX: H57.11 Ocular pain, right eye (principal); H02.843 Edema of right eye, unspecified eyelid; D50.9 Iron deficiency anemia, unspecified; Z79.899 Other long term (current) drug therapy

== ENCOUNTER → 2019-09-24 | Emergency (ER) | payer OTHER ==
[~2019-09-24] MED LIST changes: +CITA20TA6; +KETOROLAC TROMETHAMINE 10 MG TAB As Ordered ONE; +NYST1POW9; +POLYSOL OP
== END | disposition home or self-care (01) ==
LOC: M ED 09:15
DX: M70.52 Other bursitis of knee, left knee (principal); E11.9 Type 2 diabetes mellitus without complications; Z79.899 Other long term (current) drug therapy

== ENCOUNTER 2019-09-28 17:25 | Emergency (ER) | payer OTHER ==
[~2019-09-28 17:25] MED LIST changes: -KETOROLAC TROMETHAMINE 10 MG TAB As Ordered ONE; +LIDOCAINE 4% CREAM 5GM (LMX4) As Ordered ONE
== END 2019-09-28 18:00 | disposition home or self-care (01) ==
LOC: M ED 17:25
DX: S89.92XA Unspecified injury of left lower leg, initial encounter (principal); M25.462 Effusion, left knee; X50.0XXA Overexertion from strenuous movement or load, initial encounter; Y99.0 Civilian activity done for income or pay; Z79.899 Other long term (current) drug therapy

== ENCOUNTER → 2020-03-09 | Outpatient (CLI) | payer OTHER ==
[~2020-03-09] MED LIST changes: +CYAN500T14 PO; -CYAN500T8 PO; -LIDOCAINE 4% CREAM 5GM (LMX4) As Ordered ONE
== END ==
LOC: M LABSMTC 12:58
PROVIDERS: ATTEND Pediatrics
DX: Z20.822 Contact with and (suspected) exposure to COVID-19 (principal)

== ENCOUNTER → 2020-09-07 | Outpatient (CLI) | payer OTHER ==
--- NOTE | 2020-09-07 14:21 | REP ---
INDICATION: PAIN IN RIGHT KNEE COMPARISON: 08/17/2011. TECHNIQUE: Six views right knee. FINDINGS: There is no evidence of acute fracture, dislocation, or intrinsic bone disease.No significant degenerative changes are seen. There is a benign bone island in the medial femoral condyle. No radiographic evidence of a joint effusion. IMPRESSION: Negative right knee series. <Electronically signed by Tesfaye Biggs > 09/07/20 [id number]
== END ==
LOC: M ADAMS 13:01
PROVIDERS: ATTEND Physician Assistant Medical
DX: M25.561 Pain in right knee (principal)

== ENCOUNTER 2021-08-03 14:43 | Emergency (ER) | payer OTHER ==
[~2021-08-03] VITALS: Ht 185.4 cm; Wt 118.2 kg
[2021-08-03] MEDS ORDERED: KETOROLAC 30 MG/ML 1ML VIAL IV ONE (16:15)
[2021-08-03] MEDS ORDERED: ONDANSETRON 4MG/2ML VIAL IV ONE (16:15)
[2021-08-03 16:40] LABS: BASO % 0.2 % (0.0-1.0); EOS % 0.3 % (0.0-3.0); HEMATOCRIT 41.6 % (42.0-52.0); HEMOGLOBIN 14.6 g/dl (13.5-17.5); LYMPH # 2.1 10^3/uL (1.5-5.0); LYMPH % 14.9 % (24.0-44.0); MEAN CORPUSCULAR HEMOGLOBIN 33.8 pg (27.0-33.0); MEAN CORPUSCULAR HGB CONC 35.1 g/dl (32.0-36.5); MEAN CORPUSCULAR VOLUME 96.3 fl (80.0-96.0); MONO # 1.2 10^3/uL (0.0-0.8); MONO % 8.6 % (2.0-8.0); NEUTROPHILS # 10.4 10^3/uL (1.5-8.5); NEUTROPHILS % 75.5 % (36.0-66.0); PLATELET COUNT, AUTOMATED 215 10^3/uL (150-450); RED BLOOD COUNT 4.32 10^6/uL (4.30-6.10); WHITE BLOOD COUNT 13.7 10^3/uL (4.0-10.0)
[2021-08-03 17:03] LABS: ALBUMIN 3.9 GM/DL (3.2-5.2); ALT/SGPT 33 U/L (12-78); BILIRUBIN,DIRECT 0.2 MG/DL (0.0-0.2); BILIRUBIN,TOTAL 0.7 MG/DL (0.2-1.0); BLOOD UREA NITROGEN 12 MG/DL (7-18); CALCIUM LEVEL 8.6 MG/DL (8.5-10.1); CARBON DIOXIDE LEVEL 28 MEQ/L (21-32); CHLORIDE LEVEL 105 MEQ/L (98-107); CREATININE FOR GFR 1.06 MG/DL (0.70-1.30); GLOMERULAR FILTRATION RATE > 60.0 (>60); GLUCOSE, FASTING 81 MG/DL (70-100); LIPASE 85 U/L (73-393); POTASSIUM SERUM 3.8 MEQ/L (3.5-5.1); SODIUM LEVEL 138 MEQ/L (136-145); TOTAL PROTEIN 7.2 GM/DL (6.4-8.2)
[2021-08-03 17:10] LABS: ERYTHROCYTE SEDIMENTATION RATE 30 mm/hr (0-15)
[2021-08-03] MEDS ORDERED: ISOVUE-370 76% 100ML VIAL As Ordered ONE (17:14)
[2021-08-03] MEDS ORDERED: CIPROFLOXACIN 500MG TABLET PO ONE (18:20)
[2021-08-03] MEDS ORDERED: metroNIDAZOLE (FLAGYL) 500MG TABLET PO ONE (18:20)
[2021-08-03] MEDS ORDERED: CIPR-249 PO (18:25)
[2021-08-03] MEDS ORDERED: METR-265 PO (18:25)
[2021-08-03] MEDS ORDERED: ONDA4TAB6 PO (18:25)
[2021-08-03 18:45] VITALS: BP 123/65
== END 2021-08-03 19:02 | disposition home or self-care (01) ==
LOC: M ED 14:43
DX: K57.32 Diverticulitis of large intestine without perforation or abscess without bleeding (principal); K59.00 Constipation, unspecified; D50.9 Iron deficiency anemia, unspecified; F32.A Depression, unspecified; R16.1 Splenomegaly, not elsewhere classified; K76.0 Fatty (change of) liver, not elsewhere classified; Z90.89 Acquired absence of other organs; Z79.899 Other long term (current) drug therapy
CPT/HCPCS: 74177; 80048; 80076; 81001; 83690; 85025; 85652; 86140; 96374; 96375; 99284; J1885; J2405; Q9967

== ENCOUNTER → 2021-11-15 | Outpatient (CLI) | payer OTHER ==
[~2021-11-15] MED LIST changes: +CIPR-249 PO; +GASTROGRAFIN SOLUTION 30ML (Q9963) As Ordered ONE; +ISOVUE-370 76% 100ML VIAL As Ordered ONE; +METR-265 PO; +ONDA4TAB6 PO
[2021-11-15 15:22] LABS: BASO % 0.5 % (0.0-1.0); EOS # 0.1 10^3/uL (0.0-0.5); EOS % 1.1 % (0.0-3.0); HEMATOCRIT 42.9 % (42.0-52.0); HEMOGLOBIN 15.2 g/dl (13.5-17.5); LYMPH # 2.1 10^3/uL (1.5-5.0); LYMPH % 31.7 % (24.0-44.0); MEAN CORPUSCULAR HEMOGLOBIN 33.7 pg (27.0-33.0); MEAN CORPUSCULAR HGB CONC 35.4 g/dl (32.0-36.5); MEAN CORPUSCULAR VOLUME 95.1 fl (80.0-96.0); MONO # 0.5 10^3/uL (0.0-0.8); MONO % 7.4 % (2.0-8.0); NEUTROPHILS # 3.9 10^3/uL (1.5-8.5); PLATELET COUNT, AUTOMATED 246 10^3/uL (150-450); RED BLOOD COUNT 4.51 10^6/uL (4.30-6.10); WHITE BLOOD COUNT 6.7 10^3/uL (4.0-10.0)
[2021-11-15 15:49] LABS: BLOOD UREA NITROGEN 11 MG/DL (7-18); CALCIUM LEVEL 9.3 MG/DL (8.5-10.1); CARBON DIOXIDE LEVEL 30 MEQ/L (21-32); CHLORIDE LEVEL 104 MEQ/L (98-107); CREATININE FOR GFR 0.94 MG/DL (0.70-1.30); GLOMERULAR FILTRATION RATE > 60.0 (>60); GLUCOSE, FASTING 72 MG/DL (70-100); SODIUM LEVEL 139 MEQ/L (136-145)
== END ==
LOC: M RAD 14:45
PROVIDERS: ATTEND Physician Assistant Medical
DX: K57.30 Diverticulosis of large intestine without perforation or abscess without bleeding (principal)
CPT/HCPCS: 36415; 74177; 80048; 85025; Q9963; Q9967

== ENCOUNTER 2021-12-16 11:02 | Emergency (ER) | payer OTHER ==
[~2021-12-16] VITALS: Ht 185.4 cm; Wt 118.2 kg
[~2021-12-16 11:02] MED LIST changes: -GASTROGRAFIN SOLUTION 30ML (Q9963) As Ordered ONE; -ISOVUE-370 76% 100ML VIAL As Ordered ONE
[2021-12-16] MEDS ORDERED: META28.32 PO (11:11)
[2021-12-16] MEDS ORDERED: ISOVUE-370 76% 100ML VIAL As Ordered ONE (11:53)
[2021-12-16 11:55] LABS: BASO % 0.6 % (0.0-1.0); EOS # 0.1 10^3/uL (0.0-0.5); HEMOGLOBIN 14.3 g/dl (13.5-17.5); LYMPH # 1.9 10^3/uL (1.5-5.0); LYMPH % 37.6 % (24.0-44.0); MEAN CORPUSCULAR HEMOGLOBIN 33.5 pg (27.0-33.0); MEAN CORPUSCULAR HGB CONC 34.9 g/dl (32.0-36.5); MONO # 0.3 10^3/uL (0.0-0.8); MONO % 6.4 % (2.0-8.0); NEUTROPHILS # 2.7 10^3/uL (1.5-8.5); NEUTROPHILS % 54.2 % (36.0-66.0); PLATELET COUNT, AUTOMATED 217 10^3/uL (150-450); RED BLOOD COUNT 4.27 10^6/uL (4.30-6.10)
[2021-12-16] MEDS ORDERED: KETOROLAC 30 MG/ML 1ML VIAL IV ONE (11:55)
[2021-12-16] MEDS ORDERED: NS 1,000 ML IV ONE (11:55)
[2021-12-16 12:28] LABS: BILIRUBIN,DIRECT 0.1 MG/DL (0.0-0.2); BILIRUBIN,TOTAL 0.5 MG/DL (0.2-1.0); TOTAL PROTEIN 6.9 GM/DL (6.4-8.2)
[2021-12-16] MEDS ORDERED: AUGMENTIN 875 MG TAB PO ONE (13:15)
[2021-12-16] MEDS ORDERED: AMOX875T2 PO (13:15)
[2021-12-16] MEDS ORDERED: KETO10TAB PO (13:15)
[2021-12-16 13:29] LABS: RSV AMPLIFICATION NEGATIVE (NEGATIVE)
[2021-12-16 13:34] VITALS: BP 117/64
== END 2021-12-16 13:36 | disposition home or self-care (01) ==
LOC: M ED 11:02
DX: K57.32 Diverticulitis of large intestine without perforation or abscess without bleeding (principal); D50.9 Iron deficiency anemia, unspecified; F32.A Depression, unspecified; Z90.89 Acquired absence of other organs; Z79.899 Other long term (current) drug therapy
CPT/HCPCS: 74177; 80047; 80076; 81000; 83690; 85025; 87631; 96361; 96374; 99284; J1885; Q9967

== ENCOUNTER 2021-12-20 21:10 | Emergency (ER) | payer MEDICAID, OTHER ==
[~2021-12-20] VITALS: Ht 185.4 cm; Wt 115.3 kg
[~2021-12-20 21:10] MED LIST changes: +AMOX875T2 PO; +KETO10TAB PO; +META28.32 PO
[2021-12-20 21:11] VITALS: BP 137/61
[2021-12-20 21:45] LABS: BASO % 0.3 % (0.0-1.0); EOS # 0.1 10^3/uL (0.0-0.5); HEMATOCRIT 39.2 % (42.0-52.0); HEMOGLOBIN 14.1 g/dl (13.5-17.5); LYMPH # 2.7 10^3/uL (1.5-5.0); LYMPH % 33.2 % (24.0-44.0); MEAN CORPUSCULAR HEMOGLOBIN 33.7 pg (27.0-33.0); MEAN CORPUSCULAR VOLUME 93.6 fl (80.0-96.0); MONO # 0.7 10^3/uL (0.0-0.8); MONO % 8.8 % (2.0-8.0); NEUTROPHILS # 4.5 10^3/uL (1.5-8.5); NEUTROPHILS % 56.4 % (36.0-66.0); PLATELET COUNT, AUTOMATED 229 10^3/uL (150-450); RED BLOOD COUNT 4.19 10^6/uL (4.30-6.10)
[2021-12-20 22:21] LABS: ALBUMIN 3.9 GM/DL (3.2-5.2); ALT/SGPT 37 U/L (12-78); BILIRUBIN,DIRECT 0.2 MG/DL (0.0-0.2); BILIRUBIN,TOTAL 0.6 MG/DL (0.2-1.0); BLOOD UREA NITROGEN 14 MG/DL (7-18); CALCIUM LEVEL 9.2 MG/DL (8.5-10.1); CARBON DIOXIDE LEVEL 28 MEQ/L (21-32); CHLORIDE LEVEL 106 MEQ/L (98-107); CREATININE FOR GFR 0.93 MG/DL (0.70-1.30); GLOMERULAR FILTRATION RATE > 60.0 (>60); GLUCOSE, FASTING 104 MG/DL (70-100); LIPASE 103 U/L (73-393); POTASSIUM SERUM 3.3 MEQ/L (3.5-5.1); SODIUM LEVEL 140 MEQ/L (136-145); TOTAL PROTEIN 6.8 GM/DL (6.4-8.2)
[2021-12-21] MEDS ORDERED: DICY20TA20 PO (11:37)
[2021-12-21] MEDS ORDERED: CIPR-249 PO (11:37)
[2021-12-21] MEDS ORDERED: METR-265 PO (11:37)
== END 2021-12-21 01:03 | disposition left against medical advice (07) ==
LOC: M ED 21:10
DX: Z53.21 Procedure and treatment not carried out due to patient leaving prior to being seen by health care provider (principal)

== ENCOUNTER 2021-12-21 10:11 | Emergency (ER) | payer MEDICAID ==
[~2021-12-21] VITALS: Ht 185.4 cm; Wt 116.4 kg
[2021-12-21] MEDS ORDERED: METR-265 PO (11:37)
[2021-12-21] MEDS ORDERED: DICY20TA20 PO (11:37)
[2021-12-21] MEDS ORDERED: CIPR-249 PO (11:37)
[2021-12-21 11:47] VITALS: BP 130/72
== END 2021-12-21 11:49 | disposition home or self-care (01) ==
LOC: M ED 10:11
DX: K57.32 Diverticulitis of large intestine without perforation or abscess without bleeding (principal); Z90.89 Acquired absence of other organs; Z79.899 Other long term (current) drug therapy

== ENCOUNTER → 2022-03-12 | Outpatient (CLI) | payer OTHER ==
[~2022-03-12] MED LIST changes: +DICY20TA20 PO; +NAPR220C14 PO
== END ==
LOC: M LABSMTC 09:41
PROVIDERS: ATTEND Anesthesiology
DX: Z01.818 Encounter for other preprocedural examination (principal)

== ENCOUNTER 2022-03-15 06:32 | Day surgery (SDC) | payer OTHER ==
[~2022-03-15] VITALS: Ht 185.4 cm; Wt 111.0 kg
[~2022-03-15 06:32] MED LIST changes: +NS 1,000 ML IV ONE
[2022-03-15] MEDS ORDERED: SIMETHICONE 40MG/0.6ML DROPS 30ML As Ordered ONE (07:21)
[2022-03-15] MEDS ORDERED: propofoL 200 MG/20 ML VIAL As Ordered ONE (07:51)
[2022-03-15] MEDS ORDERED: LIDOCAINE 2% 100MG/5ML SDV (FOR ANES.) As Ordered ONE (07:51)
[2022-03-15 08:18] VITALS: BP 136/64
== END 2022-03-15 08:28 | disposition home or self-care (01) ==
LOC: M OPP 06:32
PROVIDERS: ATTEND Surgery
DX: K63.5 Polyp of colon (principal); K64.9 Unspecified hemorrhoids; K57.30 Diverticulosis of large intestine without perforation or abscess without bleeding; K57.32 Diverticulitis of large intestine without perforation or abscess without bleeding; Z79.1 Long term (current) use of non-steroidal anti-inflammatories (NSAID); Z79.82 Long term (current) use of aspirin; Z87.891 Personal history of nicotine dependence

== ENCOUNTER → 2022-06-21 | Outpatient (REF) | payer OTHER ==
[~2022-06-21] MED LIST changes: -NS 1,000 ML IV ONE
== END ==
LOC: M SFHCADAM 14:04
PROVIDERS: ATTEND Physician Assistant Medical
DX: R10.84 Generalized abdominal pain (principal); R14.0 Abdominal distension (gaseous)

== ENCOUNTER 2023-01-31 17:24 | Emergency (ER) | payer OTHER, SELFPAY ==
[~2023-01-31] VITALS: Ht 185.4 cm; Wt 118.2 kg
[2023-01-31] MEDS ORDERED: ASPI81CH33 PO (17:41)
[2023-01-31] MEDS ORDERED: NORCO, ANEXSIA 5/325MG TABLET (HYDROcodone/ACETAMINOPHEN) PO ONE (18:25)
[2023-01-31] MEDS ORDERED: HYDR-3713 PO (18:44)
[2023-01-31] MEDS ORDERED: IBUP80TA PO (18:44)
[2023-01-31 18:59] VITALS: BP 125/75; TEMP 98.4; O2SAT 98
== END 2023-01-31 19:07 | disposition home or self-care (01) ==
LOC: M ED 17:24
DX: M23.91 Unspecified internal derangement of right knee (principal); M25.461 Effusion, right knee; F32.A Depression, unspecified; Z79.899 Other long term (current) drug therapy

== ENCOUNTER → 2023-02-02 | Outpatient (CLI) | payer OTHER ==
[~2023-02-02] MED LIST changes: +ASPI81CH33 PO; +HYDR-3713 PO; +IBUP80TA PO
[2023-02-02 14:02] LABS: BASO % 0.3 % (0.0-1.0); EOS % 0.5 % (0.0-3.0); HEMATOCRIT 42.9 % (42.0-52.0); LYMPH # 1.8 10^3/uL (1.5-5.0); LYMPH % 23.5 % (24.0-44.0); MEAN CORPUSCULAR HEMOGLOBIN 33.6 pg (27.0-33.0); MONO # 0.5 10^3/uL (0.0-0.8); MONO % 6.8 % (2.0-8.0); NEUTROPHILS # 5.4 10^3/uL (1.5-8.5); NEUTROPHILS % 68.6 % (36.0-66.0); PLATELET COUNT, AUTOMATED 260 10^3/uL (150-450); RED BLOOD COUNT 4.47 10^6/uL (4.30-6.10); WHITE BLOOD COUNT 7.8 10^3/uL (4.0-10.0)
[2023-02-02 14:08] LABS: ALBUMIN 3.8 G/DL (3.2-5.2); ALKALINE PHOSPHATASE 68 U/L (46-116); ALT/SGPT 21 U/L (7.0-40); AST/SGOT < 8 U/L (<34); BILIRUBIN,TOTAL 0.4 MG/DL (0.3-1.2); BLOOD UREA NITROGEN 15 MG/DL (9-23); CALCIUM LEVEL 9.2 MG/DL (8.5-10.1); CARBON DIOXIDE LEVEL 28 MMOL/L (20-31); CHLORIDE LEVEL 107 MMOL/L (98-107); CREATININE FOR GFR 0.83 MG/DL (0.70-1.30); GLOMERULAR FILTRATION RATE > 60.0 (>60); GLUCOSE, FASTING 104 MG/DL (60-100); POTASSIUM SERUM 4.3 MMOL/L (3.5-5.1); RHEUMATOID FACTOR QUANT < 3.5 IU/ML (<14); SODIUM LEVEL 141 MMOL/L (136-145); TOTAL PROTEIN 6.6 G/DL (5.7-8.2)
[2023-02-02 14:09] LABS: ERYTHROCYTE SEDIMENTATION RATE 14 mm/hr (0-15)
[2023-02-03 14:10] LABS: ANTINUCLEAR ANTIBODIES DIRECT Negative (Negative)
== END ==
LOC: M PLALAB 10:25
PROVIDERS: ATTEND Student in an Organized Health Care Education/Training Program
DX: M25.561 Pain in right knee (principal)

== ENCOUNTER → 2023-08-29 | Outpatient (REF) | payer BC ==
[~2023-08-29] MED LIST changes: +ONDA-282 PO; +ONDA-284 PO; -ONDA4TAB6 PO; -ONDA8TAB8 PO
[2023-08-29 18:53] LABS: BASO % 0.5 % (0.0-1.0); EOS % 0.5 % (0.0-3.0); HEMATOCRIT 42.6 % (42.0-52.0); HEMOGLOBIN 14.7 g/dl (13.5-17.5); LYMPH # 2.1 10^3/uL (1.5-5.0); LYMPH % 31.3 % (24.0-44.0); MEAN CORPUSCULAR HEMOGLOBIN 33.9 pg (27.0-33.0); MEAN CORPUSCULAR HGB CONC 34.5 g/dl (32.0-36.5); MEAN CORPUSCULAR VOLUME 98.2 fl (80.0-96.0); MONO # 0.5 10^3/uL (0.0-0.8); MONO % 7.5 % (2.0-8.0); NEUTROPHILS # 3.9 10^3/uL (1.5-8.5); NEUTROPHILS % 59.9 % (36.0-66.0); PLATELET COUNT, AUTOMATED 265 10^3/uL (150-450); RED BLOOD COUNT 4.34 10^6/uL (4.30-6.10); WHITE BLOOD COUNT 6.6 10^3/uL (4.0-10.0)
[2023-08-29 19:18] LABS: ALBUMIN 4.1 G/DL (3.2-5.2); ALKALINE PHOSPHATASE 73 U/L (46-116); ALT/SGPT 25 U/L (7.0-40); AST/SGOT 8 U/L (<34); BILIRUBIN,TOTAL 0.6 MG/DL (0.3-1.2); BLOOD UREA NITROGEN 15 MG/DL (9-23); CALCIUM LEVEL 9.6 MG/DL (8.5-10.1); CARBON DIOXIDE LEVEL 27 MMOL/L (20-31); CHLORIDE LEVEL 107 MMOL/L (98-107); CHOLESTEROL LEVEL 177 MG/DL (<200); CHOLESTEROL RISK RATIO 4.51 (<5); CREATININE FOR GFR 0.86 MG/DL (0.70-1.30); GLOMERULAR FILTRATION RATE > 60.0 (>60); GLUCOSE, FASTING 81 MG/DL (60-100); HDL CHOLESTEROL 39.2 MG/DL (>40); LDL CHOLESTEROL 122.8 MG/DL (<100); NON-HDL-C 137.8 MG/DL; POTASSIUM SERUM 3.9 MMOL/L (3.5-5.1); SODIUM LEVEL 141 MMOL/L (136-145); THYROID STIMULATING HORMONE 2.091 uIU/ML (0.55-4.78); TOTAL 25(OH) VITAMIN D 22.4 NG/ML (20.0-100.0); TRIGLYCERIDES LEVEL 75 MG/DL (<150)
== END ==
LOC: M SFHCADAM 13:55
PROVIDERS: ATTEND Physician Assistant Medical
DX: F32.1 Major depressive disorder, single episode, moderate (principal); K21.9 Gastro-esophageal reflux disease without esophagitis; E55.9 Vitamin D deficiency, unspecified; Z13.220 Encounter for screening for lipoid disorders; Z13.1 Encounter for screening for diabetes mellitus; Z13.29 Encounter for screening for other suspected endocrine disorder

== ENCOUNTER → 2024-10-16 | Outpatient (CLI) | payer BC ==
[~2024-10-16] MED LIST changes: +GASTROGRAFIN SOLUTION 30 ML As Ordered ONE; +ISOVUE-370 76% 100 ML VIAL As Ordered ONE; +NYST1POW3; -NYST1POW9
== END ==
LOC: M RAD 11:16
PROVIDERS: ATTEND Physician Assistant Medical
DX: K57.90 Diverticulosis of intestine, part unspecified, without perforation or abscess without bleeding (principal); R93.3 Abnormal findings on diagnostic imaging of other parts of digestive tract; R91.1 Solitary pulmonary nodule
CPT/HCPCS: 71260; 74177; Q9963; Q9967

== ENCOUNTER 2025-02-17 14:14 | Emergency (ER) | payer BC ==
[~2025-02-17] VITALS: Ht 185.4 cm; Wt 116.3 kg
[~2025-02-17 14:14] MED LIST changes: -GASTROGRAFIN SOLUTION 30 ML As Ordered ONE; -ISOVUE-370 76% 100 ML VIAL As Ordered ONE
[2025-02-17 14:17] VITALS: TEMP 97.4
[2025-02-17 19:09] LABS: BASO # 0.0 10^3/uL (0.0-0.2); BASO % 0.5 % (0.0-1.0); EOS # 0.1 10^3/uL (0.0-0.5); EOS % 1.4 % (0.0-3.0); LYMPH # 2.6 10^3/uL (1.5-5.0); LYMPH % 41.1 % (24.0-44.0); MONO # 0.5 10^3/uL (0.0-0.8); MONO % 7.8 % (2.0-8.0); NEUTROPHILS # 3.1 10^3/uL (1.5-8.5); NEUTROPHILS % 49.0 % (36.0-66.0); PLATELET COUNT, AUTOMATED 253 10^3/uL (150-450)
[2025-02-17] MEDS: diphenhydrAMINE 50 MG/ML VIAL IV ONE (19:24)
[2025-02-17] MEDS: NS (Normal Saline) 0.9% 1,000 ML IV ONE (19:24)
[2025-02-17] MEDS: ACETAMINOPHEN 500 MG TAB PO ONE (19:24)
[2025-02-17 19:40] LABS: CALCIUM LEVEL 9.0 MG/DL (8.5-10.1); CARBON DIOXIDE LEVEL 28 MMOL/L (20-31); CHLORIDE LEVEL 106 MMOL/L (98-107); CREATININE FOR GFR 0.91 MG/DL (0.70-1.30); GLOMERULAR FILTRATION RATE > 90.0 (>60); MAGNESIUM LEVEL 1.9 MG/DL (1.8-2.4); POTASSIUM SERUM 4.2 MMOL/L (3.5-5.1); SODIUM LEVEL 143 MMOL/L (136-145)
[2025-02-17] MEDS: dexAMETHasone 4 MG/ML 1 ML VIAL IV ONE (21:06)
[2025-02-17] MEDS: MAG SULF 1GM/100ML (MAG RUN) 1 GM in IV 1 EA IV ONE (21:06)
[2025-02-17 22:31] VITALS: BP 118/56; O2SAT 95
== END 2025-02-17 22:46 | disposition home or self-care (01) ==
LOC: M ED 14:14
DX: R51.9 Headache, unspecified (principal); D50.9 Iron deficiency anemia, unspecified; F32.A Depression, unspecified; F17.210 Nicotine dependence, cigarettes, uncomplicated
CPT/HCPCS: 70450; 80048; 83735; 84443; 85025; 96361; 96365; 96375; 99284; J1100; J1200; J2765; J3475